=== PATIENT | female | born 1935 | race Caucasian/White ===

== ENCOUNTER 2016-10-21 14:20 | Emergency (ER) | payer OTHER, MEDICAID ==
[~2016-10-21] VITALS: Ht 157.5 cm; Wt 90.0 kg
[2016-10-21 14:31] VITALS: Ht 157.5 cm; Wt 90.0 kg
[2016-10-21] MEDS ORDERED: NYST1POW22 TOPICAL (14:38)
[2016-10-21] MEDS ORDERED: HYDR-906 PO (14:38)
[2016-10-21] MEDS ORDERED: FLUC150T17 PO (14:38)
--- NOTE | 2016-10-21 14:55 | ERD ---
ER Documentation Chief Complaint Date/Time DATE: 10/21/16 TIME: 14:44 Chief Complaint BIB RA FOR EVAL OF GROIN AREA RASH. NO FEVER. HPI This 81-year-old female presents emergency room for a groin rash on her right upper thigh in the fold of the skin between her pannus in her thigh. This rash is been going on for 2 days. They've putting steroid cream and nystatin cream on with no relief. The rash is not painful when she doesn't move or when she moves the rash is very uncomfortable and sore. She has no vaginal discharge or vaginal symptoms. She denies fever chills or any other new pain has no had no recent trauma. ROS All systems reviewed and are negative except as per history of present illness. Medications Home Meds Active Scripts Nystatin (Nystatin Powder) 1 Each Powder.ea., 1 APPLIC TOPICAL Q8, #1 BOTTLE Prov:LIAMSRIDHARGUADALUPE PRINCE 10/21/16 Hydrocodone/Acetaminophen ([place] 5-325 Tablet) 1 Each Tablet, 1 EACH PO Q6, #7 TAB Prov:LIAMMARIA DEL CARMENSRIDHAR 10/21/16 Fluconazole* (Diflucan*) 150 Mg Tablet, 150 MG PO ONCE, #1 TAB To be taken in 5 days if rash persists. Prov:SRIDHAR WHEELER 10/21/16 PMhx/Soc Hx Alcohol Use: No Hx Substance Use: No Hx Tobacco Use: No Physical Exam Vitals Vital Signs Date Time Temp Pulse Resp B/P Pulse Ox O2 Delivery O2 Flow Rate FiO2 10/21/16 14:31 98.7 65 18 125/69 99 Physical Exam Const: [] No distress, comfortable appearing Abd: Soft, non tender, non distended. Back: No midline or flank tenderness Ext: No cyanosis, or edema. Erythematous rash with confluence about the skin fold of the right anterior thigh between the pannus. Rash does have satellite lesions surrounding it. No bleeding, no swelling. Same area on the left side does not have this rash. Appearance of the external vagina is normal. Distal pulses intact. No limitation of range of motion Neur: Awake and alert and oriented 3, no focal deficits Results 24 hrs Current Medications Medications (Trade) Dose Ordered Sig/Sarthak Route PRN Reason Start Time Stop Time Status Last Admin Dose Admin Acetaminophen/ Hydrocodone Bitart ([place] (5/325)) 1 tab ONCE ONCE PO 3/11/17 15:00 10/21/16 15:01 Fluconazole (Diflucan) 150 mg ONCE ONCE PO 10/21/16 15:00 10/21/16 15:01 Procedures/MDM 81-year-old female with candidal rash. Stable vital signs and no other complaints. Starting crit was likely not helping the rash. Told her this rash is been kept clean and dry. I'm giving her Diflucan and an [place] pills emergency room for pain when she moves. Admitted discharge her with an extra Diflucan in case the rash is not resolving in 5 days as well as nystatin powder. Also giving her 7 [place] for acute pain. Primary care follow-up in 2-3 days return precautions to the ER given. Departure Diagnosis: Primary Impression: Olga Lidia rash of groin Condition: Stable Patient Instructions: Olga Lidia Skin Infection (Adult) Additional Instructions: Call your primary care doctor TOMORROW for an appointment during the next 2-3 days.See the doctor sooner or return here if your condition worsens before your appointment time. SRIDHAR WHEELER DO Oct 21, 2016 14:54
[2016-10-21] MEDS ORDERED: FLUCONAZOLE 150 MG TAB PO ONE (15:00)
[2016-10-21] MEDS ORDERED: HYDROCODONE/APAP (5/325) TAB PO ONE (15:00)
== END 2016-10-21 15:33 | disposition home or self-care (01) ==
LOC: E/R 14:20
DX: B37.2 Candidiasis of skin and nail (principal)
CPT/HCPCS: 99284

== ENCOUNTER 2018-11-10 12:00 | Emergency (ER) | payer OTHER ==
[~2018-11-10] VITALS: Ht 152.4 cm; Wt 86.4 kg
[~2018-11-10 12:00] MED LIST: FLUC150T PO; HYDR-4011 PO; NYST1POW22 TOPICAL
[2018-11-10 12:06] VITALS: Ht 152.4 cm; Wt 86.4 kg
[2018-11-10] MEDS ORDERED: NAPR-985 PO (13:52)
--- NOTE | 2018-11-10 14:08 | ERD ---
ER Documentation Chief Complaint Chief Complaint Chronic left arm pain by [id number] fr home HPI This is a very pleasant 83-year-old female presents to the emergency department complaining of left arm pain. The patient indicates she has had multiple similar episodes of muscle spasms in her left upper extremity however when she awoke this morning she stated it was a dull achy pain on her left arm. The pain was exacerbated by movement. She denies any trauma to her left upper extremity or shoulder. She said no fevers or shaking or chills. She denies any numbness or tingling of her upper extremities. She is right-handed dominant. She denies any chest pain or pressure. She has no shortness of breath. She did not take any analgesic medication prior to arrival. ROS All systems reviewed and are negative except as per history of present illness. Medications Home Meds Active Scripts Naproxen* (Naprosyn*) 500 Mg Tablet, 500 MG PO BID PRN for PAIN AND/OR INFLAMMATION, #30 TAB Prov:JONATAN [place] MD 11/10/18 Nystatin (Nystatin Powder) 1 Each Powder.ea., 1 APPLIC TOPICAL Q8, #1 BOTTLE Prov:SRIDHAR WHEELER DO 10/21/16 Hydrocodone/Acetaminophen ([place] 5-325 Tablet) 1 Each Tablet, 1 EACH PO Q6, #7 TAB Prov:SRIDHAR WHEELER DO 10/21/16 Fluconazole* (Diflucan*) 150 Mg Tablet, 150 MG PO ONCE, #1 TAB To be taken in 5 days if rash persists. Prov:SRIDHAR WHEELER DO 10/21/16 Allergies Allergies: Coded Allergies: Penicillins (Verified Allergy, Unknown, 11/10/18) Uncoded Allergies: SULFA (Allergy, Unknown, 11/10/18) PMhx/Soc History of Surgery: No Anesthesia Reaction: No Hx Neurological Disorder: No Hx Respiratory Disorders: No Hx Cardiac Disorders: Yes (htn) Hx Psychiatric Problems: No Hx Miscellaneous Medical Probl: Yes (dm) Hx Alcohol Use: No Hx Substance Use: No Hx Tobacco Use: No Smoking Status: Never smoker Physical Exam Vitals Vital Signs Date Temp Pulse Resp B/P (MAP) Pulse Ox O2 O2 Flow FiO2 Time Delivery Rate 11/10/18 98.2 67 17 145/73 97 12:06 (97) Physical Exam Constitutional:Well-developed. Well-nourished. HEENT:Normocephalic. Atraumatic.Pupils were equal round reactive to light. Moist mucous membranes.No tonsillar exudates. Neck: No nuchal rigidity. No lymphadenopathy. No posterior cervical spine tenderness or step-offs. Respiratory: Not using accessory muscles of respiration.Lungs were clear to auscultation bilaterally. No rhonchi. No rales. No wheezing. Cardiovascular: Regular rate regular rhythm.No murmurs. No rubs were appreciated.S1, S2 normal. Distal pulses are palpable 2+ bilaterally. GI: Abdomen was soft. Nontender. Non Distended. No pulsatile abdominal masses or bruits. No rebound. No guarding. Bowel sounds were present and normal. Muscle skeletal: Full range of motion of both the upper and lower extremities bilaterally.Normal muscle tone.No assymetrical calf tenderness or swelling. Tenderness over the midshaft of the left humerus but no obvious bony deformity. Compartments are soft. Patient is able to abduct the left upper extremity past 90 degrees. No acromial clavicular tenderness over the left upper extremity. Patient able to flex extend ulnar and radial deviate the left wrist. No tenderness over the left forearm. Skin: No petechia, no purpura. No lesions on the palms or the soles of the feet. No maculopapular rash. NEURO: Patient was alert, awake, orientated x3.No facial droop. Gait observed and normal with no ataxia.Speech had regular rate and rhythm. No focal neurological deficits. Result Diagram: 11/10/18 1244 11/10/18 1244 Results 24 hrs Laboratory Tests Test 11/10/18 12:44 White Blood Count 4.2 10^3/ul Red Blood Count 4.15 10^6/ul Hemoglobin 12.3 g/dl Hematocrit 38.0 % Mean Corpuscular Volume 91.6 fl Mean Corpuscular Hemoglobin 29.6 pg Mean Corpuscular Hemoglobin Concent 32.4 g/dl Red Cell Distribution Width 13.3 % Platelet Count 169 10^3/UL Mean Platelet Volume 9.7 fl Immature Granulocytes % 0.200 % Neutrophils % 55.3 % Lymphocytes % 34.5 % Monocytes % 8.1 % Eosinophils % 1.4 % Basophils % 0.5 % Nucleated Red Blood Cells % 0.0 /100WBC Immature Granulocytes # 0.010 10^3/ul Neutrophils # 2.3 10^3/ul Lymphocytes # 1.5 10^3/ul Monocytes # 0.3 10^3/ul Eosinophils # 0.1 10^3/ul Basophils # 0.0 10^3/ul Nucleated Red Blood Cells # 0.0 10^3/ul Prothrombin Time Pending Prothrombin Time Ratio 2.7 INR International Normalized Ratio 3.45 Activated Partial Thromboplast Time 51.3 Sec Sodium Level 141 mmol/L Potassium Level 3.8 mmol/L Chloride Level 104 mmol/L Carbon Dioxide Level 30 mmol/L Anion Gap 7 Blood Urea Nitrogen 19 mg/dl Creatinine 1.15 mg/dl Est Glomerular Filtrat Rate mL/min mL/min Glucose Level 104 mg/dl Calcium Level 9.7 mg/dl Total Bilirubin 0.5 mg/dl Direct Bilirubin 0.00 mg/dl Indirect Bilirubin 0.5 mg/dl Aspartate Amino Transf (AST/SGOT) 24 IU/L Alanine Aminotransferase (ALT/SGPT) 27 IU/L Alkaline Phosphatase 59 IU/L Creatine Kinase < 20 IU/L Creatine Kinase Index Creatinine Kinase MB (Mass) < 0.22 ng/ml Troponin I < 0.012 ng/ml B-Type Natriuretic Peptide 257 PG/ML Total Protein 6.8 g/dl Albumin 3.8 g/dl Globulin 3.00 g/dl Albumin/Globulin Ratio 1.26 Procedures/MDM This is a very pleasant 81-year-old female that presented to the emergency department with left arm pain. There is no evidence of compartment syndrome or necrotizing fasciitis. There is no overlying skin changes to suggest cellulitis. I did obtain a two-view radiograph of the patient's left humerus and there is no evidence of a fracture. I did feel is necessary to obtain a 12- lead EKG tracing and ancillary laboratory work to rule out for atypical microinfarction. The patient had no loculate abnormalities. Troponin was within normal limits. There is no evidence of leukocytosis to suggest an inf ectious process. 12 Lead EKG tracing ordered and reviewed by myself showed: Sinus bradycardia at 58 bpm and no arrhythmia. DC interval prolonged at 212 ms consistent with first-degree AV block QRS duration normal. No ST segment elevation No ST segment depression. No changes consistent with acute ischemia. The patient's PTT was elevated at 51.3. This was relayed to the patient. She states she will follow-up on an outpatient basis with her primary care physician. There is no signs of hemoptysis hematemesis and no melanotic stools. The patient had no petechia or purpura no thrombocytopenia. The patient was discharged home in fair condition. There is my clinical impression the patient' s pain was likely result of muscle skeletal injury and muscle spasm. She will be sent home with Naprosyn. She was refusing analgesic medication in the emergency department and they were instructed to return to the emergency department at any time if there was any worsening of their condition. The patient stated they would follow up with their PCP in the next 24-48 hours to initiate a suitable medication regimen under the care of their PCP as well as to allow their PCP to monitor any drug reactions. The patient was discharged home with prescriptions after they gave informed consent to the new medication. They were also fully informed by myself on the adverse effects and adverse drug interactions in order to provide adequate safeguards to prevent possible adverse reactions to medications. Departure Diagnosis: Primary Impression: Pain of left arm Condition: Fair Patient Instructions: Muscle Spasm OJNATAN [place] MD Nov 10, 2018 14:07
[2018-11-10 14:13] VITALS: BP 117/68; PULSE 79; RESP 20
== END 2018-11-10 14:16 | disposition home or self-care (01) ==
LOC: E/R 12:00
DX: M79.602 Pain in left arm (principal); I10 Essential (primary) hypertension; E11.9 Type 2 diabetes mellitus without complications
CPT/HCPCS: 73060; 80053; 82550; 82553; 83880; 84484; 85025; 85610; 85730; 93005